=== PATIENT | female | born 1995 | race Two or more races ===

== ENCOUNTER 2021-07-03 06:00 | Inpatient (IN) | payer OTHER ==
[~2021-07-03] VITALS: Ht 167.6 cm; Wt 83.0 kg
[2021-07-04] MEDS ORDERED: SINGULAIR10 MG (09:23)
[2021-07-04] MEDS ORDERED: PRENATAL + DHA1 EAC1 (09:23)
[2021-07-04] MEDS ORDERED: BUDEO.25 (09:23)
[2021-07-05] MEDS ORDERED: NAPR500T14 PO (09:07)
== END 2021-07-05 13:22 | disposition home or self-care (01) | DRG 807 ==
LOC: LDR 06:00 → EDBD 06:00 → OB/GYN 06:00
PROVIDERS: ADMIT Obstetrics & Gynecology; ATTEND Obstetrics & Gynecology
PROC: 10E0XZZ Delivery of Products of Conception, External Approach (ICD-10-PCS; principal; 2021-07-03)
PROC: 0KQM0ZZ Repair Perineum Muscle, Open Approach (ICD-10-PCS; 2021-07-03)
PROC: 4A1HXCZ Monitoring of Products of Conception, Cardiac Rate, External Approach (ICD-10-PCS; 2021-07-03)
DX: O70.1 Second degree perineal laceration during delivery (principal); Z37.0 Single live birth; Z3A.39 39 weeks gestation of pregnancy; Z20.822 Contact with and (suspected) exposure to COVID-19